=== PATIENT | female | born 1940 | race Caucasian/White ===

== ENCOUNTER 2023-11-02 08:44 | Day surgery (SDC) | payer MEDICARE ==
[~2023-11-02] VITALS: Ht 161.3 cm; Wt 57.7 kg
[~2023-11-02 08:44] MED LIST: LR 1,000 ML IV SCH; Ondansetron 4 MG/2 ML VIAL IV PRN
[2023-11-02] MEDS ORDERED: ELIQUIS 2.5 PO (10:05)
[2023-11-02] MEDS ORDERED: FERROUSAL325 MG PO (10:06)
[2023-11-02] MEDS ORDERED: ALDACTONE 25MG25 M1 PO (10:07)
[2023-11-02] MEDS ORDERED: Lidocaine PF 2% (20 MG/ML) 5 ML VIAL ONE (10:30)
[2023-11-02] MEDS ORDERED: Glycopyrrolate 0.2 MG/ML 1 ML VIAL ONE (10:39)
[2023-11-02] MEDS ORDERED: LASIX 20MG TABL20 MG PO (11:21)
[2023-11-02] MEDS ORDERED: LIPITOR 10MG10 MG PO (11:23)
[2023-11-02] MEDS ORDERED: CITRACAL-D3 ER1 EACH PO (11:28)
[2023-11-02 11:30] VITALS: BP 118/73; PULSE 65; TEMP 97.3
[2023-11-02 11:45] VITALS: BP 109/65; PULSE 63
[2023-11-02 13:08] VITALS: BP 128/73; BP 147/63; PULSE 57; PULSE 77; TEMP 97.2; TEMP 99.3
--- NOTE | 2023-11-02 13:22 | NUR ---
0911 Pt ambulatory to bay 3 with the use of a rolator, breathing even and unlabored. Pt is alert and oriented, accompanied by her daughter. Consents reviewed and signed by pt. IV established. LR infusing via gravity at KVO. Call light in reach. Warm blanket provided.
[2023-11-02] MEDS ORDERED: FLEXERIL 1010 MG/TAB PO (14:15)
[2023-11-02] MEDS ORDERED: ESTRACE 1MG1 MG/TAB PO (14:16)
[2023-11-02] MEDS ORDERED: ALEVE 220MG220 MG PO (14:19)
[2023-11-02] MEDS ORDERED: MASON NATURAL1200 MG PO (14:20)
[2023-11-02] MEDS ORDERED: CLARITIN 1010 MG/TAB PO (14:21)
[2023-11-02] MEDS ORDERED: MIRALAX PA17 GM/Dose PO (14:22)
[2023-11-02] MEDS ORDERED: MELATONIN5 M1 SL (14:23)
[2023-11-02] MEDS ORDERED: MAG-OX 400400 MG/TAB PO (14:23)
[2023-11-02] MEDS ORDERED: SYSTANE 0.4%-0.1 SOL OU (14:26)
[2023-11-02] MEDS ORDERED: PACERONE100 MG PO (14:26)
[2023-11-02] MEDS ORDERED: SYNTHROID0.075 MG/T PO (14:29)
[2023-11-02] MEDS ORDERED: GAS RELIEF125 MG PO (14:30)
[2023-11-02] MEDS ORDERED: VITAMINC1000TA (14:32)
[2023-11-02] MEDS ORDERED: DELSYM30 MG/5 ML PO (14:32)
[2023-11-02] MEDS ORDERED: VITAMIN E1000 U/CAP PO (14:33)
[2023-11-02] MEDS ORDERED: DESYREL 50MG50 MG PO (14:34)
[2023-11-02] MEDS ORDERED: PHARMASSURE ZIN50 MG PO (14:34)
[2023-11-02] MEDS ORDERED: DEPAKOTE ER 50500 MG PO (14:35)
[2023-11-02] MEDS ORDERED: WELCHOL 625MG625 MG PO (14:36)
--- NOTE | 2023-11-02 17:38 | NUR ---
110-1150: PT TO [facility]O [facility] FROM [facility] S/P COLONOSCOPY W/ BX'S A&O, PLACED ON MONITOR, VSS ON RA RECEIVED REPORT AND ASSUMED CARE OF PT FROM ENDO RN DTR AT BEDSIDE - SNF TAKER AWAY TO PICK PT UP PROVIDED FOOD/FLUIDS, TOLERATING WELL MD IN TO SEE PT POST-PROCEDURE PT HAS REMAINED A&O, NAD, VSS ON RA, TOLERATING PO, IS WITHOUT SIGNIFICANT COMPLAINT, WITH SAFE GAIT THRU OUT STAY IV D/C'D. D/C INSTRUCTIONS, ANY FOLLOW UP REVIEWED AND HANDED TO PT. ALL QUESTIONS AND CONCERNS ADDRESSED TO PT SATISFACTION. TAKEN TO EXIT VIA W/C WITH ALL BELONGINGS AND PAPERWORK IN HAND, ASSISTED INTO PASSENGER SEAT OF VEHICLE. SNF STAFF TO DRIVE HOME.
== END 2023-11-02 11:50 ==
LOC: SDCO 08:44
DX: K52.832 Lymphocytic colitis (principal); D50.9 Iron deficiency anemia, unspecified; R19.7 Diarrhea, unspecified; R19.5 Other fecal abnormalities; K57.30 Diverticulosis of large intestine without perforation or abscess without bleeding; Z87.891 Personal history of nicotine dependence
CPT/HCPCS: J2704; J7120